=== PATIENT | female | born 1970 | race Caucasian/White ===

== ENCOUNTER → 2016-09-27 | Outpatient (CLI) | payer MEDICARE, OTHER | LOC: CT 09:26 | DX: C18.6 Malignant neoplasm of descending colon (principal); M25.512 Pain in left shoulder | CPT/HCPCS: 36415; 71260; 73060; 82565; 84520; J7050; Q9962 ==

== ENCOUNTER 2017-01-06 22:16 | Emergency (ER) | payer MEDICARE, OTHER ==
[2017-01-07 01:46] LABS: HEMOGLOBIN 14.7 gm/dl (12.3-15.3); RED BLOOD COUNT 4.61 M/UL (4.00-5.10); WHITE BLOOD COUNT 7.9 K/UL (4.5-11.0)
[2017-01-07 02:02] LABS: BUN/CREATININE RATIO 20 (0-10)
== END 2017-01-07 03:00 | disposition home or self-care (01) ==
LOC: ER1 22:16
PROVIDERS: Emergency Medicine
DX: N30.90 Cystitis, unspecified without hematuria (principal); C34.90 Malignant neoplasm of unspecified part of unspecified bronchus or lung; Z85.038 Personal history of other malignant neoplasm of large intestine
CPT/HCPCS: 36415; 80053; 81001; 83690; 85025; 87086; 96361; 96374; 99283; J2405